=== PATIENT | female | born 1985 | race Caucasian/White ===

== ENCOUNTER 2018-10-07 16:23 | Inpatient (IN) | payer MEDICAID ==
[~2018-10-07] VITALS: Ht 149.9 cm; Wt 70.9 kg
[2018-10-07 16:32] VITALS: BP 109/67; PULSE 79; RESP 21; Ht 149.9 cm; Wt 70.9 kg
[2018-10-07] MEDS ORDERED: LACTATED RINGER'S 1,000 ML IV SCH (16:45)
[2018-10-07] MEDS ORDERED: OXYTOCIN 30 UNITS/LR 500 ML IV SCH ×3 (17:00→20:30)
[2018-10-07] MEDS ORDERED: MISOPROSTOL 200 MCG TAB PR PRN (17:00)
[2018-10-07] MEDS ORDERED: OXYTOCIN 30 UNITS/LR 500 ML IV PRN (17:00)
[2018-10-07] MEDS ORDERED: BUTORPHANOL 2 MG INJ IV PRN (17:00)
[2018-10-07] MEDS ORDERED: IBUPROFEN 600 MG TAB PO PRN (17:00)
[2018-10-07] MEDS ORDERED: LIDOCAINE 1% (MPF) 30 ML INJ INJ PRN (17:00)
[2018-10-07] MEDS ORDERED: CARBOPROST 250 MCG INJ IM PRN (17:00)
[2018-10-07] MEDS ORDERED: METHYLERGONOVINE 0.2 MG INJ IM PRN (17:00)
[2018-10-07] MEDS ORDERED: LACTATED RINGER'S 1,000 ML IV PRN (17:02)
[2018-10-07] MEDS ORDERED: AMPICILLIN 2 GM/NS (PMX) 100 ML IV ONE (17:30)
--- NOTE | 2018-10-07 19:17 | HP ---
Date/Time of Note Date/Time of Note DATE: 10/07/18 TIME: 19:14 OB - History Hx of Present Chief Complaint: contractions Estimated Due Date: Oct 16, 2018 : 4 Para: 3 Spontaneous : 0 Therapeutic : 0 Care: Good Care Ultrasounds: Normal mid trimester US Obstetrical Complications: None Medical Complications: None Past Family/Social History * Past Medical, Surgical, Family and Obstetric Histories reviewed from chart. GBS Status: Positive OB Admission Exam Vital Signs Vital Signs Vital Signs Date Temp Pulse Resp B/P (MAP) Pulse Ox O2 O2 Flow FiO2 Time Delivery Rate 10/07/18 98.1 79 21 109/67 Room Air 16:32 (81) Physical Exam HEENT: WNL Heart: Rhythm Normal Lungs: Clear, Equal Abdomen: WNL Extremities: Normal Reflexes: Normal Cervical Dilatation: 4cm Effacement: 75% Station: -1 Membranes: Intact Heart Rate: 120's Accelerations: Accelerations Present Decelerations: No Decelerations Varibility: Moderate Last 72 hours Lab Results CBC & BMP 10/07/18 17:18 OB Assessment/Plan Reason for admission: active labor Plan: Expectant Management KYLE ROCK MD Oct 07, 2018 19:17
--- NOTE | 2018-10-07 20:49 | PREAC ---
Date/Time of Note Date/Time of Note DATE: 10/07/18 TIME: 20:48 Anesthesia Eval and Record Evaluation Time Pre-Procedure Interview DATE: 10/07/18 TIME: 20:48 Age 33 Sex female NPO: 8 hrs Preoperative diagnosis IUP Planned procedure L&D Epidural Past Medical History Past Medical History: Includes GI: Obesity : : Surgery & Anesthesia Issues No known issue Meds Anticoagulation: No Beta Macy within 24 hr: No Reason Beta Macy not given: Pt. not on B-Macy No Active Prescriptions or Reported Meds Current Medications Lactated Ringer's 1,000 ml @ 125 mls/hr Q8H IV Last administered on 10/07/18at 17:27; Admin Dose 125 MLS/HR; Start 10/07/18 at 16:45 Butorphanol Tartrate (Stadol) 2 mg Q2H PRN IV .PAIN SCALE 6-10 Last administered on 10/07/18at 19:59; Admin Dose 2 MG; Start 10/07/18 at 17:00 Lidocaine (Xylocaine 1% (Mpf)) 30 ml ONCE PRN INJ .EPISIOTOMY; Start 10/07/18 at 17:00 Oxytocin/Lactated Ringer's 500 ml @ 500 mls/hr ONCE POST IV ; Start 10/07/18 at 17:00 Oxytocin/Lactated Ringer's 500 ml @ 125 mls/hr POST IV ; Start 10/07/18 at 17:00 Ibuprofen (Motrin) 600 mg ONCE PRN PO .PAIN 1-5; Start 10/07/18 at 17:00 Oxytocin/Lactated Ringer's 500 ml @ 0 mls/hr ONCE PRN IV .VAGINAL BLEEDING; Start 10/07/18 at 17:00 Methylergonovine Maleate (Methergine) 0.2 mg ONCE PRN IM .VAGINAL BLEEDING; Start 10/07/18 at 17:00 Carboprost Tromethamine (Hemabate) 250 mcg ONCE PRN IM .VAGINAL BLEEDING; Start 10/07/18 at 17:00 Misoprostol (Cytotec) 1,000 mcg ONCE PRN SC .VAGINAL BLEEDING; Start 10/07/18 at 17:00 Ampicillin 50 ml @ 100 mls/hr Q4H IV ; Start 10/07/18 at 21:30 Lactated Ringer's 1,000 ml @ 2,000 mls/hr Q30M PRN IV .ANESTHESIA Last administered on 10/07/18at 20:24; Admin Dose 2,000 MLS/HR; Start 10/07/18 at 17:02 Oxytocin/Lactated Ringer's 500 ml @ 0 mls/hr FOR AUGMENTATION IV ; Start 10/07/18 at 20:30 Meds reviewed: Yes Allergies Coded Allergies: No Known Allergy (Unverified , 10/07/18) Allergies Reviewed: Yes Labs/Studies Labs Reviewed: Reviewed by anesthesiologist Result Diagram: 10/07/18 1718 Laboratory Tests 10/07/18 17:18 Blood Bank Test 10/07/18 17:18 Antibody Screen NEGATIVE Blood Type O POSITIVE Rh Immune Globulin Candidate NO test: Positive Studies: ECG Pre-procedure Exam Last vitals Vital Signs Date Temp Pulse Resp B/P (MAP) Pulse Ox O2 O2 Flow FiO2 Time Delivery Rate 10/07/18 98.1 79 21 109/67 Room Air 16:32 (81) Airway: Adequate mouth opening, Adequate thyromental dist Mallampati: Mallampati II Teeth: Normal Lung: Normal Heart: Normal ASA Physical Status ASA physical status: 2 Emergency: None Planned Anesthetic Neuraxial: Epidural Planned Pain Management Epidural, Parenteral pain med Pre-operative Attestations Prior to commencing anesthesia and surgery, the patient was re-evaluated, there was verification of: *The patient's identity *The results of appropriate recent lab work and preoperative vital signs *The above evaluation not changing prior to induction *Anesthetic plan, risk benefits, alternative and complications discussed with patient/family; questions answered; patient/family understands, accepts and wishes to proceed. JENNY HWANG MD Oct 07, 2018 20:49
[2018-10-07] MEDS ORDERED: FENTAnyl 2MCG/ML-ROPIV 0.2% 100 ML ONE (20:51)
[2018-10-07] MEDS ORDERED: FENTAnyl 2MCG/ML-ROPIV 0.2% 100 ML BAG EPI SCH (21:00)
[2018-10-07] MEDS ORDERED: ONDANSETRON 4 MG INJ IV PRN (21:00)
[2018-10-07] MEDS ORDERED: DIPHENHYDRAMINE 50 MG INJ IV PRN (21:00)
[2018-10-07] MEDS ORDERED: NALOXONE (0.4 MG/ML) INJ IV PRN (21:00)
[2018-10-07] MEDS ORDERED: AMPICILLIN 1 GM/NS (PMX) 50 ML IV SCH (21:30)
--- NOTE | 2018-10-07 22:34 | LDN ---
Date/Time of Note Date/Time of Note DATE: 10/07/18 TIME: 22:31 Delivery Summary Weeks of Gestation 38+ weeks Placenta Delivered: Spontaneously Meconium: none Episiotomy: No Perineal laceration: 0 Anesthesia type: Epidural Estimated blood loss: 100 Sponge & Needle done & correct: Yes All needle counts correct: Yes Any foreign bodies felt in the: No Infant Delivery Information Sex Infant Sex: male Apgars 1 Minute: 9 5 Minute: 9 Suctioning Nose & mouth suctioned at mj: No Delee suction performed: No Umbilical Cord Umbilical cord with: 3 Vessels Cord presentations: no nuchal cord Cord Blood was obtained: Yes Mother & Baby Disposition Disposition Mom & Baby to Maternity; Good: Yes KYLE ROCK MD Oct 07, 2018 22:34
[2018-10-08] VITALS: BP 102/50; PULSE 63; RESP 18
[2018-10-08] MEDS ORDERED: LACTATED RINGER'S 1,000 ML IV* SCH (00:11)
[2018-10-08] MEDS ORDERED: DIBUCAINE 1% 30 GM OINT TOP PRN (00:30)
[2018-10-08] MEDS ORDERED: WITCH HAZEL/GLYCERIN PAD PR PRN (00:30)
[2018-10-08] MEDS ORDERED: CARBOPROST 250 MCG INJ IM PRN (00:30)
[2018-10-08] MEDS ORDERED: ACETAMINOPHEN 325 MG TAB PO PRN (00:30)
[2018-10-08] MEDS ORDERED: METHYLERGONOVINE 0.2 MG INJ IM PRN (00:30)
[2018-10-08] MEDS ORDERED: HYDROCODONE/APAP (5/325) TAB PO PRN (00:30)
[2018-10-08] MEDS ORDERED: OXYTOCIN 30 UNITS/LR 500 ML IV PRN (00:30)
[2018-10-08] MEDS ORDERED: MISOPROSTOL 200 MCG TAB PR PRN (00:30)
[2018-10-08] MEDS ORDERED: BENZOCAINE 20% 56 ML SPRAY TOP PRN (00:30)
[2018-10-08] MEDS: IBUPROFEN 600 MG TAB PO SCH ×4 (00:30→17:41)
--- NOTE | 2018-10-08 02:20 | PAC ---
Date/Time of Note Date/Time of Note DATE: 10/08/18 TIME: 02:20 Post-Anesthesia Notes Post-Anesthesia Note Last documented vital signs Vital Signs Date Temp Pulse Resp B/P (MAP) Pulse Ox O2 O2 Flow FiO2 Time Delivery Rate 10/07/18 98.1 79 21 109/67 Room Air 16:32 (81) Activity: WNL Respiratory function: WNL Cardiovascular function: WNL Mental status: Baseline Pain reasonably controlled: Yes Hydration appropriate: Yes Nausea/Vomiting absent: Yes Comments BP:112/67, P:78, Spo2:100%, T:98,8 JENNY HWANG MD Oct 08, 2018 02:20
[2018-10-08 04:00] VITALS: BP 96/52; PULSE 65
[2018-10-08 07:45] VITALS: BP 93/50; PULSE 63; RESP 18
[2018-10-08] MEDS: SENNA/DOCUSATE NA (8.6MG/50MG) TAB PO SCH ×2 (09:02→20:58)
[2018-10-08 11:49] VITALS: BP 108/54; PULSE 59; RESP 18
[2018-10-08 16:30] VITALS: BP 91/50; PULSE 74; RESP 18
--- NOTE | 2018-10-08 18:55 | PN ---
Date/Time of Note Date/Time of Note DATE: 10/08/18 TIME: 18:54 OB Subjective Subjective Subjective PPD#1 Patient is doing well. She denies nausea, vomiting, shortness of breath, chest pain, headache. She has been ambulating without difficulty, tolerating regular diet. Pain is well controlled on current medications OB Objective Objective Objective Vital Signs Date Temp Pulse Resp B/P (MAP) Pulse Ox O2 O2 Flow FiO2 Time Delivery Rate 10/08/18 97.9 74 18 91/50 (64) Room Air 16:30 General: AAO X 3, comfortable, NAD, appropriate mood and affect. ABD: +BS. Soft, non-tender. Uterus 2 cm below umbilicus Flank: No CVA tenderness (B/L) LE: Mild edema. No clubbing, cyanosis, thigh or calf tenderness (B/L). Homans 'sign is negative OB Assessment/Plan Other plan: 33 years old -0-0-4 s/p normal vaginal delivery. PPD#1 - AF, VSS - Contraception methods with R/B/A/FR discussed - Continue care - Hemoglobin 12 - Discharge home tomorrow - Rx and instruction given - Follow up in 2 and 6 weeks at clinic EBONY OQUENDO Oct 08, 2018 18:55
--- NOTE | 2018-10-08 18:56 | DS ---
Date/Time of Note Date/Time of Note DATE: 10/08/18 TIME: 18:55 Obstetrical Discharge Record Final Diagnosis Final Diagnosis: Term delivered Other Final Diagnosis 33 years old -0-0-4 s/p normal vaginal delivery. PPD#1. Post course was unremarkable.. She is ablating and tolerating regular diet. She is voiding without difficulty - AF, VSS - Contraception methods with R/B/A/FR discussed - Continue care - Hemoglobin 12 - Discharge home tomorrow - Rx and instruction given - Follow up in 2 and 6 weeks at clinic Vaginal Delivery Obstetrical Delivery: Spontaneous Condition on Discharge Physical Assessment Voiding: Yes Bowel Movement: Yes Breast: Soft, non-tender Fundus: Firm Calf Tenderness: No Patient Condition: Stable EBONY OQUENDO Oct 08, 2018 18:56
[2018-10-08 19:45] VITALS: BP 114/62; PULSE 57; RESP 18
[2018-10-09 04:00] VITALS: BP 99/58; PULSE 60; RESP 18
[2018-10-09] MEDS: IBUPROFEN 600 MG TAB PO SCH ×3 (06:10→11:40)
[2018-10-09 08:00] VITALS: BP 105/51; PULSE 58; RESP 18
[2018-10-09] MEDS ORDERED: DIPHTH/TET/ACEL PERTUSS (ADULT) 0.5 ML VIAL IM* ONE (09:00)
[2018-10-09] MEDS: SENNA/DOCUSATE NA (8.6MG/50MG) TAB PO SCH (09:55)
[2018-10-09 15:35] VITALS: BP 112/56; PULSE 56; RESP 16
--- NOTE | 2018-10-10 18:23 | DELSUM ---
Delivery Summary A-C Datetime Report Generated by CPN: 10/10/2018 18:23 DELIVERY PERSONNEL Treatment Counselor: ABRAHAM, DEBORA MATERNAL INFORMATION Delivery Anesthesia: Epidural Medications in Delivery: LR W/30 UNITS PITOCIN Delivery QBL (ml): 100 Placenta Cultured: No Maternal Complications: Other LABOR SUMMARY EDC: 10/16/2018 00:00 No. Babies in Womb: 1 Attempted: No Labor Anesthesia: Epidural LABOR INFORMATION Onset of Labor: 10/07/2018 08:00 Complete Dilatation: 10/07/2018 22:07 Group B Beta Strep: Positive Antibiotics # of Doses: 2 Antibiotics Time of Last Dose: 10/07/2018 22:27 MEMBRANES Membranes Rupture Method: Artificial Rupture of Membranes: 10/07/2018 18:57 Length of Rupture (hr): 3.35 Amniotic Fluid Color: Clear Amniotic Fluid Amount: Moderate Amniotic Fluid Odor: None STAGES OF LABOR Stage 1 hr: 14 Stage 1 min: 7 Stage 2 hr: 0 Stage 2 min: 11 Stage 3 hr: 0 Stage 3 min: 6 Total Time in Labor hr: 14 Total Time in Labor min: 24 VAGINAL DELIVERY Episiotomy: None Laceration Extension: N/A Laceration Type: None Laceration Repair: Not Applicable Initial Vag Sponge Count: 10 Final Vag Sponge Count: 10 Initial Vag Sharps Count: 1 Final Vag Sharps Count: 1 Sponge Count Correct: Yes; Vaginal Sweep Performed Sharps Count Correct: Yes BABY A INFORMATION Infant Delivery Date/Time: 10/07/2018 22:18 Method of Delivery: Vaginal Born in Route : No : N/A Forceps: N/A Vacuum Extraction: N/A Shoulder Dystocia : N/A SHOULDER DYSTOCIA BABY A Infant Delivery Date/Time: 10/07/2018 22:18 PRESENTATION/POSITION BABY A Presentation: Cephalic Cephalic Presentation: Vertex Breech Presentation: N/A PLACENTA INFORMATION BABY A Placenta Delivery Time : 10/07/2018 22:24 Placenta Method of Delivery: Spontaneous Placenta Status: Delivered SCORES BABY A Heart Rate 1 min: >100 bpm Resp Effort 1 min: Good Cry Reflex Irritability 1 min: Cough/Sneeze/Pulls Away Muscle Tone 1 min: Active Motion Color 1 min: Body [place], Extremit Blue Resuscitation Effort 1 min: Tactile Stimulation SCORE 1 MIN: 9 Heart Rate 5 min: >100 bpm Resp Effort 5 min: Good Cry Reflex Irritability 5 min: Cough/Sneeze/Pulls Away Muscle Tone 5 min: Active Motion Color 5 min: Body [place], Extremit Blue Resuscitation Effort 5 min: Tactile Stimulation SCORE 5 MIN: 9 INFORMATION BABY A Gestational Age at Delivery: 38.5 Gestational Status: Early Term- 37- 38.6 Weeks Infant Outcome : Liveborn, with signs of life Infant Condition : Stable Sex: Male IDENTIFICATION/MEDS BABY A ID Band Number: [id number] ID Band Location: Right Leg; Left Arm Sensor Applied: Yes Sensor Number: [id number] Sensor Location : Cord Clamp Vitamin K Given : Not Given Erythromycin Given: Not Given WEIGHT/LENGTH BABY A Birthweight (gm): 3840 Infant Weight (lb): 8 Infant Weight (oz): 7 Length (in): 19.50 Infant Length (cm): 49.53 CORD INFORMATION BABY A No. Cord Vessels: 3 Nuchal Cord : N/A Cord Blood Taken: Yes Suction: Mouth; Nose ASSESSMENT BABY A Complications: None Physical Findings at Delivery: Within Normal Limits Infant Respirations: Appears Normal Gas Pipe Layer/ALS Called : No Care By: RN Transferred To: Remains with Mother
== END 2018-10-09 17:37 | disposition home or self-care (01) | DRG 807 ==
LOC: OBT 16:23 → L-D 16:24 → OBT 16:39 → PP1 23:40
PROVIDERS: ADMIT Obstetrics & Gynecology; ATTEND Obstetrics & Gynecology
PROC: 10E0XZZ Delivery of Products of Conception, External Approach (ICD-10-PCS; principal; 2018-10-07)
DX: O99.824 Streptococcus B carrier state complicating childbirth (principal); O99.214 Obesity complicating childbirth; E66.9 Obesity, unspecified; Z37.0 Single live birth; Z3A.38 38 weeks gestation of pregnancy; Z23 Encounter for immunization
CPT/HCPCS: 62322; 85025; 85610; 85730; 86592; 86850; 86900; 86901; 90715; G0463; J0290; J0595; J2405; J2590; J3010; J7120